=== PATIENT | female | born 1930 | race Caucasian/White ===

== ENCOUNTER 2018-08-15 18:35 | Inpatient (IN) | payer MEDICARE ==
[2018-08-15 20:15] LABS: Troponin I 1.252 ng/mL (< 0.028)
[2018-08-15 21:37] VITALS: BMI 21.8
[2018-08-15] MEDS ORDERED: Senokot S 8.6-50 MG TAB PO PRN (21:40)
[2018-08-15] MEDS ORDERED: Bisacodyl 5 MG TAB PO PRN (21:40)
[2018-08-15] MEDS ORDERED: Acetaminophen 325 MG TAB PO PRN (21:40)
[2018-08-15 23:01] LABS: Troponin I 1.409 ng/mL (< 0.028)
[2018-08-16 05:21] LABS: Anion Gap 10 mmol/L (10-20); BUN (Urea Nitrogen) 27 mg/dL (9.8-20.1); Calc. Creatinine Clearance 36 mL/min (70-130); Calcium 9.3 mg/dL (7.8-10.44); Carbon Dioxide 27 mmol/L (23-31); Chloride 102 mmol/L (98-107); Estimated GFR-MDRD 54; Glucose 87 mg/dL (83-110); Iron 14 ug/dL (50-170); Iron Binding Capacity, Total 341 mcg/dL (265-497); Potassium 4.3 mmol/L (3.5-5.1); Sodium 135 mmol/L (136-145)
[2018-08-16 05:27] LABS: #Eosinphils 0.2 thou/uL (0.0-0.7); #Lymphocytes 1.3 thou/uL (1.20-3.40); #Monocytes 0.9 thou/uL (0.11-0.59); #Neutrophils 5.6 thou/uL (1.40-6.50); %Basophils 0.5 % (0.0-1.0); %Monocytes 11.7 % (0.0-10.0); %Neutrophils 69.7 % (42.0-75.0); Hemoglobin 8.2 g/dL (12.0-16.0); Mean Corpuscular HGB CONC 29.9 g/dL (32.0-36.0); Mean Corpuscular Hemoglobin 21.3 pg (27.0-31.0); Mean Corpuscular Volume 71.3 fL (78.0-98.0); Mean Platelet Volume 10.4 fL (7.4-10.4); Platelet Count 314 thou/uL (130-400); RBC Distribution Width 19.6 % (11.5-14.5); Red Blood Cell (RBC) Count 3.86 mill/uL (4.20-5.40)
[2018-08-16 05:43] LABS: Critical Call Chem Troponin I RESULT DECREASING; Troponin I 1.331 ng/mL (< 0.028)
--- NOTE | 2018-08-16 05:52 | PDOC.EVN ---
Event Note - Event Note Event Note: pt's pcp is Dr mena per pt and ER. Resident called and informed.
--- NOTE | 2018-08-16 05:58 | PDOC.FPRHP ---
- History of Present Illness Chief Complaint: chest pain History of Present Illness: This is an 88 yo F who is a transfer from the [place] ER. She was initially admitted to [facility], who later discovered she is a patient of Dr. Anguiano's. The patient presented to the [place] ER with CC of chest pain and SOB. She complained of lower chest pain and SOB. Patient had O2 saturation that dropped to 88% during transit and offered O2 by EMS but patient refused. Patient states pain is localized and dull in nature. She was found to be in SVT. She was given cardizem 10mg IV, ASA, morphine, and lasix in the ED. Her labs showed elevated BNP concerning for CHF, new onset as well as possible NSTEMI. Heparin was not started due to hx of bleeding ulcer and patient's anemia. On exam, the patient reports that she is feeling less SOB. She states that yesterday she laid down to take a nap around noon when she began feeling SOB. She became increasingly SOB and called her daughter who decided she should go to the ER. She endorsed chest pain at the time that she states felt like her usual GERD pain. SHe states it was dull, started in the middle of her chest and went across her left chest. She states this pain is exacerbated by eating. She states that her symptoms were exacerbated by lying flat and exertion. She states she has been having symptoms for weeks. She denies fever/chills, NVD, cough, palpitations, abdominal pain. She denies hx of previous MIs. ED Course: cardizem, asa, morphine, lasix - Allergies/Adverse Reactions Allergies Allergy/AdvReac Type Severity Reaction Status Date / Time Penicillins Allergy Verified 09/04/15 02:55 Sulfa (Sulfonamide Allergy Verified 09/04/15 02:55 Antibiotics) - Home Medications Medication Instructions Recorded Confirmed Type No Known 08/15/18 08/15/18 History - History PMHx: HTN, depression, GERD, degenerative joint disease, SVT PSHx: cataract surgery, cholecystectomy, hernia repair FHx: non contributory Social: denies alcohol, tobacco or drug use; lives in assisted living apartments in [place], sees Dr. Anguiano for her PCP - Review of Systems General: denies: fever/chills, weight/appetite/sleep changes, night sweats, fatigue Eyes: denies: vision changes ENT: denies: nasal congestion, rhinorrhea Respiratory: reports: shortness of breath, exercise intolerance. denies: cough , congestion Cardiovascular: reports: chest pain, paroxysmal nocturnal dyspnea, orthopnea. denies: palpitation, edema Gastrointestinal: denies: nausea, vomiting, diarrhea, constipation, abdominal pain Genitourinary: denies: dysuria Skin: denies: rashes Neurological: denies: numbness, syncope, seizure Psychological: reports: depression. denies: anxiety - Vital signs BP: 145/70, T: 97.5, HR: 73, RR: 18, O2 sats: 100% on 2L NC - Physical Exam Constitutional: NAD, awake, alert and oriented, well developed HEENT: normocephalic and atraumatic, PERRLA, EOMI, grossly normal vision, grossly normal hearing, MMM -HEENT: poor dentition Neck: supple, FROM Chest: no-tender to palpation, no lesions Heart: RRR, normal S1/S2, no murmurs/rubs/gallops, pulses present Lungs: CTAB, no respiratory distress, good air movement, no rales/rhonchi, no wheezing, no retractions Abdomen: soft, non-tender, bowel sounds present Musculoskeletal: normal structure, normal tone Neurological: no focal deficit Skin: no rash/lesions, good turgor, capillary refill <2 seconds Psychiatric: normal mood and affect FMR H&P: Results - Labs Result Diagrams: 08/16/18 04:19 08/16/18 04:19 Lab results: WBC 8.0 thou/uL (4.8-10.8) 08/16/18 04:19 Hgb 8.2 g/dL (12.0-16.0) L 08/16/18 04:19 Hct 27.5 % (36.0-47.0) L 08/16/18 04:19 MCV 71.3 fL (78.0-98.0) L 08/16/18 04:19 Plt Count 314 thou/uL (130-400) 08/16/18 04:19 Neutrophils % 69.7 % (42.0-75.0) 08/16/18 04:19 Sodium 135 mmol/L (136-145) L 08/16/18 04:19 Potassium 4.3 mmol/L (3.5-5.1) 08/16/18 04:19 Chloride 102 mmol/L (98-107) 08/16/18 04:19 Carbon Dioxide 27 mmol/L (23-31) 08/16/18 04:19 BUN 27 mg/dL (9.8-20.1) H 08/16/18 04:19 Creatinine 0.97 mg/dL (0.6-1.1) 08/16/18 04:19 Glucose 87 mg/dL (83-110) 08/16/18 04:19 Calcium 9.3 mg/dL (7.8-10.44) 08/16/18 04:19 - Radiology Interpretation Chest x-ray Status: report reviewed by me (pulm vascular congestion w/ enlarged cardiac silouette; bibasilar pleural/parenchymal opacity) FMR H&P: A/P - Problem List (1) NSTEMI (non-ST elevated myocardial infarction) Current Visit: Yes Status: Acute Code(s): I21.4 - NON-ST ELEVATION (NSTEMI) MYOCARDIAL INFARCTION (2) CHF (congestive heart failure) Current Visit: Yes Status: Acute Code(s): I50.9 - HEART FAILURE, UNSPECIFIED (3) HTN (hypertension) Current Visit: Yes Status: Acute Code(s): I10 - ESSENTIAL (PRIMARY) HYPERTENSION (4) GERD (gastroesophageal reflux disease) Current Visit: Yes Status: Acute Code(s): K21.9 - GASTRO-ESOPHAGEAL REFLUX DISEASE WITHOUT ESOPHAGITIS (5) Anemia Current Visit: Yes Status: Acute Code(s): D64.9 - ANEMIA, UNSPECIFIED (6) Depression Current Visit: Yes Status: Acute Code(s): F32.9 - MAJOR DEPRESSIVE DISORDER , SINGLE EPISODE, UNSPECIFIED - Plan NSTEMI - Trops have now downtrended 1.252 -> 1.409 -> 1.331 - Cards consulted, appreciate recs - Patient has not been anticoagulated due to hx of bleeding GI ulcers - Will discuss with cardiology and likely start patient on lovenox CHF, new onset - BNP 2011, elevated from baseline, no hx of CHF - Echo pending - Cards consulted Elevated D-dimer - Ddimer 1. - Will order CTA chest to r/o PE Episode of SVT , resolved - given cardizem, patient current NSR - Hx of SVT in 2016, seen by Mary who offered ablation - patient wished to have no invasion procedures at that time. - Cards consulted, appreciate recommendations HTN - aware, home meds GERD - aware, continue home meds Depression - aware, continue home meds Dispo: tele, inpatient; >2midnights CODE: DNAR DVT ppx: lovenox Gi ppx: protonix Case discussed with Dr. Alvarez FMR H&P: Upper Level - Pertinent history 88 yo WF PMH HTN and SVT. Presents with 2 wk history of intermittent SOB and upper abdominal pain that worsened at approximately 1200 on 08/15/18. States she waited for her daughter to get off work at 1500 before coming to [place] ER for evaluation. Was found to have an NSTEMI and presumed new onset CHF was sent to [facility] for evaluation and admission. She received ASA 324 mg, morphine 4 mg, and Lasix 20 mg. Has history of GI bleed. [place] ER: patient went into SVT and required a diltiazem gtt. She was admitted to [facility] but was then discovered at 0600 today to be a patient of Dr. Anguiano and transferred to the FMR service. At this time her SVT had resolved and she was no longer requiring diltiazem. - Pertinent findings Vitals: BP elevated at 149/91, pulse 73 (max documented 160), otherwise WNL GEN: NAD, A&Ox4 CV: RRR, no murmur Pulm: CTA-B, normal effort Labs: BNP 2011, Trop 1.189-> 1.252 -> 1.409-> 1.331 H&H 8.2/27.5 (baseline) CXR: No acute findings EKG #1: NSR, no specific ST changes EKG #2: SVT rate 160 - Plan Date/Time: 08/16/18 0558 I, Sean Abad MD, have evaluated this patient and agree with findings/plan as outlined by network internship resident. Pertinent changes/additions are listed here. 1. NSTEMI: trop has trended down. Will discuss anticoagulation with cardiology and await further recommendations. 2. Presumed New onset CHF: cards recs. Continue Lasix. 3. Elevated D-dimer: CTA-Chest to r/o PE. 4. SVT: resolved. Monitor 5. HTN: home meds. Diet: NPO pending possible cath. PPx: SCD, consider therapeutic lovenox CODE: DNR-DNI. Discussed with patient who was decisional. Dispo: inpatient, tele, >[address] Alvarez. Addendum - Attending - Attending Attestation Date/Time: 08/16/18 1159 I personally evaluated the patient and discussed the management with Dr. Peres I agree with the History, Examination, Assessment and Plan documented above with any addition or exceptions noted below. 88 yo female living independently [place] with progressive dyspnea for the last two weeks with worsening episode at rest yesterday. Patient endorses epigastric lower chest pain that radiated to left breast no associated N/V or diaphoresis pain states this pain previously relieved by drinking liquids yesterday was not.Patient called Daughter and transported to [place] ER then transferred ER [facility] and found with NSTEMI and SVT given 10 mg IV cardizem with rate down to 80s prior to my exam. Upon having patient sit up for exam she had asymptomatic SVT for which IV cardizem was initiated. Patient with past medical history CHF states on no medication over one month, history significant dysphagia and history esophagitis, previous bleeding ulcer. Patient poor historian and defers to obtaining information from her Daughters. Patient with prior episode SVT refused consideration of ablation in the past. She confirms she is DNR request comfort care declines invasive care at this time. Note positive D-Dimer will proceed with CTA and obtain echocardiogram, IV diltiazem for rate control patient states can only take po liquids and chokes on pills. Expectant management will need consider long term care pharmacist placement options as she is debilitated.Consider anticoagulation after CTA completed note anemia and prior GI bleed.
[2018-08-16] MEDS ORDERED: Furosemide 40 MG TAB PO SCH (07:30)
[2018-08-16 07:37] LABS: Hemoglobin A1c 5.4 % (4.0-6.0)
[2018-08-16] MEDS ORDERED: Famotidine/PF 20 mg/2ml Vial SLOW IVP SCH (09:00)
[2018-08-16] MEDS: Bupropion 150 MG SR TAB PO SCH (09:00)
--- NOTE | 2018-08-16 10:11 | CT ---
CT PULMONARY ANGIOGRAM WITH IV CONTRAST AND 3-D POSTPROCESSING: HISTORY: Chest pain and shortness of breath FINDINGS: There is good contrast opacification of the pulmonary arterial vasculature without filling defects to suggest pulmonary embolism. There are bilateral pleural effusions, right larger than left with adjacent mild infiltrates/atelectatic changes. No pneumothoraces are seen. Pericardial effusion is pr esent. There are degenerative changes in the spine. There are postoperative changes of cholecystectomy. Calcified granulomas are seen in the liver and spleen. Adrenal nodularity stable sin ce 06/12/2012. The esophagus is dilated. IMPRESSION: No CT evidence of pulmonary embolism.
[2018-08-16] MEDS: Aspirin Chewable 81 MG TAB PO SCH (10:18)
[2018-08-16] MEDS: Enoxaparin Sodium 60 MG/0.6 ML SYRINGE SC SCH ×2 (10:18→21:01)
[2018-08-16] MEDS: Metoprolol Tartrate 25 MG TAB PO SCH ×2 (10:19→21:01)
[2018-08-16] MEDS: FLUoxetine HCl 20 MG CAP PO SCH (10:19)
[2018-08-16] MEDS: Lisinopril/Hydrochlorothiazide 20 mg/12.5 mg Tablet PO SCH (10:19)
[2018-08-16] MEDS ORDERED: ISOVUE-370 76%-LOCM 1 ML ONE (10:57)
--- NOTE | 2018-08-16 18:36 | CON ---
DATE OF CONSULTATION: 08/16/2018 REASON FOR CONSULTATION: SVT. HISTORY OF PRESENT ILLNESS: Ms. Gallegos is a very pleasant 88-year-old white female, whom I saw about 3 years ago in the hospital. At that time, she was admitted for generalized weakness and she went into SVT. She refused any invasive interventions and was started on a beta-brook and eventually was discharged home. Family tells me that she has been on no medications over the past 2-1/2 to 3 years as she did not want to go to any doctors and the medications would not be refilled if she did not go see them. She called EMS yesterday as she was short of breath and was starting to get volume overload, she was found to be in SVT when EMS arrived, and she was given IV diltiazem and brought into the hospital. Eventually, she converted back in sinus rhythm and was admitted for further evaluation. She had troponins drawn and they were elevated suggestive of a non-ST elevation NH. She also went back into SVT briefly this morning for about 10 minutes and then converted back into normal rhythm on her own. Currently, she denies any chest pain, tightness, or pressure. Her biggest complaint is her not being able to swallow. She needs an EGD and dilatation as she has had them in the past with Dr. Alberts. PAST MEDICAL HISTORY: 1. Hypertension. 2. Depression. 3. GERD. 4. DJD. 5. History of SVT as above. PAST SURGICAL HISTORY: 1. Cataract surgery. 2. Cholecystectomy. 3. Hernia repair. FAMILY HISTORY: Noncontributory. SOCIAL HISTORY: No alcohol, tobacco, or drugs. REVIEW OF SYSTEMS: A 12-point review of systems was done and was all negative unless stated in the history of present illness. OUTPATIENT MEDICATIONS: None. ALLERGIES: PENICILLIN AND SULFA DRUGS. PHYSICAL EXAMINATION: VITAL SIGNS: Blood pressure 148/81, temperature 98.6, pulse 71, respiratory rate 16, and satting 98% on 3 L. GENERAL: Awake, alert, and oriented x3. No distress. HEENT: Normocephalic and atraumatic. NECK: Supple. LUNGS: Clear. CARDIOVASCULAR: S1 and S2. No S3 or S4. No murmurs. There is a grade 3/6 systolic murmur at the right upper sternal border. ABDOMEN: Soft. Positive bowel sounds. EXTREMITIES: No edema. SKIN: Warm and dry. LABORATORY DATA: Laboratory work was reviewed. CBC: White count of 9.3; hemoglobin 7.7, up to 8.2; platelet count of 314. Coags were reviewed. Chemistries were reviewed. Her iron was 14, TIBC was 341, percent saturation was 4. Troponin was 1.18, up to 1.25, then 1.4 and then down to 1.3. BNP was 2012 with a procalcitonin of 0.08 and TSH of 3.2. Digoxin level was undetectable. CT of the chest showed no evidence of pulmonary embolism. Chest x-ray was reviewed and showed pulmonary vascular congestion. ASSESSMENT: 1. Acute on chronic diastolic heart failure. 2. Supraventricular tachycardia, paroxysmal. 3. Etj-YJ-terhmuacl myocardial infarction: Unclear whether this is a type 2 myocardial infarction versus type 1 myocardial infarction. More than likely, a type 2 myocardial infarction secondary to rapid supraventricular tachycardia. 4. Dysphagia. PLAN: 1. Continue aspirin and full anticoagulation for the time being. 2. Agree with metoprolol 25 mg twice a day, may increase as blood pressure allows. We will cut back on her hydrochlorothiazide and just give her lisinopril. 3. She is significantly improved with her breathing with IV Lasix. We would keep her one more dose of IV tomorrow and then switch her to p.o. daily dose at 40. 4. She is not wanting any invasive interventions. Not interested in heart catheterizations or anything of that sort. Not interested in ablations. We will continue to treat conservatively for now. 5. She will need to complete 48 hours of full anticoagulation. Thank you for letting us to participate in the care of your patient. We will follow. Job ID: [id number]
--- NOTE | 2018-08-17 06:30 | PDOC.FM ---
- Subjective Subjective: Pt says feels weak and "not well." Denies chest pain. Endorses SOB. - Objective Vital Signs & Weight: Vital Signs (12 hours) Temp Pulse Resp BP Pulse Ox 08/17/18 02:43 98.1 F 69 18 138/65 96 08/16/18 19:15 98.2 F 67 18 130/70 92 L Weight Weight 57.652 kg I&O: 08/15/18 08/16/18 08/17/18 06:59 06:59 06:59 Intake Total 1000 Output Total 650 Balance 350 Result Diagrams: 08/16/18 04:19 08/16/18 04:19 Phys Exam - Physical Examination HEENT: PERRLA, sclera anicteric Respiratory: no wheezing, clear to auscultation bilateral Cardiovascular: no significant murmur tachycardic Gastrointestinal: soft, no distention Neurological: non-focal, moves all 4 limbs Deviation from normal: anxious appearing Dx/Plan (1) NSTEMI (non-ST elevated myocardial infarction) Code(s): I21.4 - NON-ST ELEVATION (NSTEMI) MYOCARDIAL INFARCTION Status: Acute (2) CHF (congestive heart failure) Code(s): I50.9 - HEART FAILURE, UNSPECIFIED Status: Acute (3) HTN (hypertension) Code(s): I10 - ESSENTIAL (PRIMARY) HYPERTENSION Status: Acute (4) GERD (gastroesophageal reflux disease) Code(s): K21.9 - GASTRO-ESOPHAGEAL REFLUX DISEASE WITHOUT ESOPHAGITIS Status: Acute - Plan Plan: NSTEMI - Trops have now downtrended 1.252 -> 1.409 -> 1.331 - Pt refused invasive interventions, continue with conservative mgmt - th lovenox, statin, ASA. Cards rx 48 hours of this - Hx of bleeding GI ulcers, will monitor SVT -HR 150s per report, pt sxatic -Dilt IV push x1, start dilt gtt - hx of SVT in 2015, refused ablation. s/p episode yesterday, resolved with cardizem x1 -rate control CHF, new onset - BNP 2011, elevated from baseline, no hx of CHF - Echo pending - ASA, lisinopril, BB - continue 40IV lasix x1 this AM then transition to PO today per cards - will start statin Elevated D-dimer - Ddimer 1.19 - CTA neg for PE HTN - aware, home meds GERD - aware, continue home meds Depression - aware, continue home meds Dispo: tele, inpatient; >2midnights CODE: DNAR DVT ppx: lovenox Gi ppx: protonix Case discussed with Dr. Alvarez Addendum - Attending - Attending Attestation Date/Time: 08/17/18 2418 I personally evaluated the patient and discussed the management with Dr. Almanza I agree with the History, Examination, Assessment and Plan documented above with any addition or exceptions noted below. patient s/p MT appreciate Smalltalk Developer recommendation and note that echocardiogram reveal wall motion defect c/w more extensive MT. SVT responsive to diltiazem will rec drip and convert to po if rate controlled next 24 hours Appreciate recommendations form Cardiology.
[2018-08-17] MEDS: Enoxaparin Sodium 60 MG/0.6 ML SYRINGE SC SCH ×2 (08:44→21:45)
[2018-08-17] MEDS: Lisinopril/Hydrochlorothiazide 20 mg/12.5 mg Tablet PO SCH (08:44)
[2018-08-17] MEDS: Bupropion 150 MG SR TAB PO SCH (08:44)
[2018-08-17] MEDS: FLUoxetine HCl 20 MG CAP PO SCH (08:45)
[2018-08-17] MEDS: Aspirin Chewable 81 MG TAB PO SCH (08:45)
[2018-08-17] MEDS: Metoprolol Tartrate 25 MG TAB PO SCH (08:45)
[2018-08-17] MEDS: Famotidine/PF 20 mg/2ml Vial SLOW IVP SCH (08:45)
[2018-08-17] MEDS ORDERED: Furosemide 40 MG/4 ML VIAL SLOW IVP SCH (09:00)
--- NOTE | 2018-08-17 09:57 | EKG ---
Test Reason : Blood Pressure : / mmHG Vent. Rate : 075 BPM Atrial Rate : 075 BPM P-R Int : 174 ms QRS Dur : 130 ms QT Int : 428 ms P-R-T Axes : 033 -14 041 degrees QTc Int : 477 ms Normal sinus rhythm Right bundle branch block Nonspecific ST-T changes Abnormal ECG When compared with ECG of 15-AUG-2018 18:41, (Unconfirmed) Previous ECG has undetermined rhythm, needs review QRS axis Shifted right Confirmed by DR. Erika PEREYRA ([id number]) on 08/17/2018 9:57:00 AM Referred By: SHEMAR Confirmed By:DR. Erika PEREYRA
[2018-08-17] MEDS ORDERED: Diltiazem 125 MG in Sodium Chloride 0.9% 100 ML IVPB SCH (10:00)
--- NOTE | 2018-08-17 10:05 | EKG ---
Test Reason : Blood Pressure : / mmHG Vent. Rate : 083 BPM Atrial Rate : 083 BPM P-R Int : 180 ms QRS Dur : 130 ms QT Int : 416 ms P-R-T Axes : 012 -46 025 degrees QTc Int : 488 ms Sinus rhythm with Premature atrial complexes Right bundle branch block Left anterior fascicular block Bifascicular block Abnormal ECG Confirmed by DR. Erika PEREYRA ([id number]) on 08/17/2018 10:05:30 AM Referred By: ERNESTO Confirmed By:DR. Erika PEREYRA
--- NOTE | 2018-08-17 10:38 | EKG ---
Test Reason : Blood Pressure : / mmHG Vent. Rate : 157 BPM Atrial Rate : 159 BPM P-R Int : 000 ms QRS Dur : 130 ms QT Int : 304 ms P-R-T Axes : 000 -59 040 degrees QTc Int : 491 ms Undetermined rhythm Left axis deviation Right bundle branch block Abnormal ECG Confirmed by CHIO VALDERRAMA ([id number]), medical transcription editor RANDI TORREZ ([id number]) on 08/17/2018 10:38:12 AM Referred By: Confirmed By:CHIO VALDERRAMA
[2018-08-17] MEDS ORDERED: Furosemide 40 MG TAB PO SCH (14:00)
--- NOTE | 2018-08-17 14:58 | PDOC.EVN ---
Event Note - Event Note Event Note: Pt HR improved on IV Diltiazem. Will increase Metoprolol and D/C IV Diltiazem this evening.
--- NOTE | 2018-08-17 16:13 | PDOC.CTH ---
Cardiology Progress Note - Subjective She had another run of sustained SVT HR in the 180's. Started on diltiazem drip. - Objective Vital Signs Temp Pulse Resp BP Pulse Ox 08/17/18 15:45 97.8 F 65 18 138/77 08/17/18 12:30 97.8 F 64 20 139/70 96 08/17/18 08:45 98.3 F 98 20 157/87 H 96 08/17/18 08:44 69 08/17/18 07:35 95 Weight 127 lb 1.6 oz 08/16/18 08/17/18 08/18/18 06:59 06:59 06:59 Intake Total 1000 Output Total 650 Balance 350 - Physical Examination General/Neuro: alert & oriented x3, NAD Neck: no JVD present Lungs: other: (Reduced bretah sounds more on right. ) Heart: RRR Abdomen: NT/ND Extremities: + edema B (1+) - Telemetry Telemetry Rhythm: AVT --> NSR - Labs Result Diagrams: 08/16/18 04:19 08/16/18 04:19 Troponin/CKMB Troponin I 1.331 ng/mL (< 0.028) H* 08/16/18 04:19 - Assessment/Plan 1. SVT 2. NSTEMI 3. New onset systolic heart failure EF at 30-35% 4. Dysphagia 5. Acute systolic heart failure. PLAN: - IV lasix - Would hold diltiazem for now and up titrate BB. - Continue full anticoagulation. - Reduced EF and inferior hypokinesis suggestive of area of ischemia. - Still not interested in anything invasive. - She wants to be kept comfortable and does not want anything aggressive. - I offered palliative care and she tells she would have to talk to her daughters about this. - If she continues to have SVT will start amiodarone drip.
[2018-08-17] MEDS ORDERED: buPROPion 75 MG TAB PO SCH (21:00)
[2018-08-17] MEDS: Metoprolol Tartrate 50 MG TAB PO SCH (21:44)
[2018-08-17] MEDS: Atorvastatin Calcium 40 MG TAB PO SCH (21:44)
[2018-08-17] MEDS: buPROPion 75 MG TAB PO SCH (21:44)
--- NOTE | 2018-08-18 05:35 | PDOC.FM ---
- Subjective Subjective: Pt reports feeling better. Denies chest pain, problems breathing. - Objective MAR Reviewed: Yes Vital Signs & Weight: Vital Signs (12 hours) Temp Pulse Resp BP Pulse Ox 08/18/18 03:34 98.5 F 63 17 151/72 H 98 08/17/18 19:15 98 F 73 18 132/87 100 Weight Weight 57.652 kg I&O: 08/16/18 08/17/18 08/18/18 06:59 06:59 06:59 Intake Total 1000 680 Output Total 650 1240 Balance 350 -560 Result Diagrams: 08/18/18 06:31 08/18/18 06:31 Phys Exam - Physical Examination Constitutional: NAD HEENT: PERRLA, moist MMs, sclera anicteric Neck: full ROM Respiratory: no wheezing, clear to auscultation bilateral Cardiovascular: no significant murmur bradycardic Gastrointestinal: soft, non-tender Musculoskeletal: no edema Neurological: non-focal, moves all 4 limbs Psychiatric: normal affect, A&O x 3 Dx/Plan (1) KARLI (acute kidney injury) Code(s): N17.9 - ACUTE KIDNEY FAILURE, UNSPECIFIED Status: Acute (2) NSTEMI (non-ST elevated myocardial infarction) Code(s): I21.4 - NON-ST ELEVATION (NSTEMI) MYOCARDIAL INFARCTION Status: Acute (3) CHF (congestive heart failure) Code(s): I50.9 - HEART FAILURE, UNSPECIFIED Status: Acute (4) HTN (hypertension) Code(s): I10 - ESSENTIAL (PRIMARY) HYPERTENSION Status: Acute (5) GERD (gastroesophageal reflux disease) Code(s): K21.9 - GASTRO-ESOPHAGEAL REFLUX DISEASE WITHOUT ESOPHAGITIS Status: Acute (6) Sustained SVT Code(s): I47.1 - SUPRAVENTRICULAR TACHYCARDIA Status: Acute (7) Anemia Code(s): D64.9 - ANEMIA, UNSPECIFIED Status: Acute (8) Hypokalemia Code(s): E87.6 - HYPOKALEMIA Status: Acute - Plan Plan: NSTEMI - Trops have now downtrended 1.252 -> 1.409 -> 1.331 - Pt refused invasive interventions, continue with full conservative mgmt - th lovenox, statin, ASA. Cards rx 48 hours of this - Hx of bleeding GI ulcers, will monitor - Cards on board, recs appreciated Sustained SVT -Episode of nonsustained SVT on 08/16/18, s/p dilt IVP x1 -Episode of sustained SVT on 08/17/18, s/p dilt IVP x1, then dilt gtt started then d/cd per cards -Metoprolol uptitrated-50mg BID, rate controlled, continue this -Still refusing ablation/any invasive procedure -Amio if SVT returns New onset CHFrEF (30-35%) - BNP 2011, elevated from baseline, no hx of CHF - Echo showing grade 1/3 diastolic dysfx, mitral regurg, pericardial effusion w/ o tamponade - Continue ASA, lisinopril, BB, statin, IV lasix Hypokalemia -from diuresis, will replace Dysphagia -Patient with hx of esophageal stricture -Pending ballooon dilation, but may need to delay for 3mo. due to NSTEMI -Will discuss with patient/daughters Pericardial effusion -Found on TTE this admission -No tamponade -BPs maintaining -No further intervention at this time Elevated D-dimer - Ddimer . - CTA neg for PE HTN - aware, home meds GERD - aware, continue home meds Depression - aware, continue home meds CODE: DNAR DVT ppx: lovenox Gi ppx: protonix Case discussed with Dr. Alvarez Dispo: SVT: Rate controlled with metoprolol, continue. KARLI: 500cc bolus, continue to monitor for fluid overload. stopped IV lasix, will give PRN. Consider transition to PO tmrw. Dysphagia: unable to tolerate puree diet this AM , have speech come reevaluate. NSTEMI, CHF- medical mgmt, declines further invasive interventions. Replace K+. Addendum - Attending - Attending Attestation Date/Time: 08/18/18 8044 I personally evaluated the patient and discussed the management with Dr. Almanza I agree with the History, Examination, Assessment and Plan documented above with any addition or exceptions noted below.
[2018-08-18] MEDS ORDERED: Furosemide 40 MG/4 ML VIAL SLOW IVP SCH (06:00)
[2018-08-18 06:55] LABS: #Eosinphils 0.2 thou/uL (0.0-0.7); #Lymphocytes 1.1 thou/uL (1.20-3.40); #Monocytes 0.6 thou/uL (0.11-0.59); #Neutrophils 6.9 thou/uL (1.40-6.50); %Basophils 0.5 % (0.0-1.0); %Eosinophils 1.9 % (0.0-10.0); %Lymphocytes 12.8 % (21.0-51.0); %Neutrophils 77.9 % (42.0-75.0); Hemoglobin 8.2 g/dL (12.0-16.0); Mean Corpuscular HGB CONC 29.6 g/dL (32.0-36.0); Mean Corpuscular Hemoglobin 21.3 pg (27.0-31.0); Mean Platelet Volume 9.7 fL (7.4-10.4); Platelet Count 366 thou/uL (130-400); RBC Distribution Width 19.8 % (11.5-14.5); Red Blood Cell (RBC) Count 3.86 mill/uL (4.20-5.40); White Blood Cell (WBC) Count 8.9 thou/uL (4.8-10.8)
[2018-08-18 07:13] LABS: Anion Gap 15 mmol/L (10-20); BUN (Urea Nitrogen) 32 mg/dL (9.8-20.1); Calc. Creatinine Clearance 22 mL/min (70-130); Calcium 8.9 mg/dL (7.8-10.44); Carbon Dioxide 25 mmol/L (23-31); Chloride 100 mmol/L (98-107); Estimated GFR-MDRD 34; Glucose 79 mg/dL (83-110); Potassium 3.1 mmol/L (3.5-5.1); Sodium 137 mmol/L (136-145)
[2018-08-18] MEDS ORDERED: Potassium Chloride 40 MEQ in Premix Bag 1 BAG IVPB SCH (09:15)
[2018-08-18] MEDS: Lisinopril/Hydrochlorothiazide 20 mg/12.5 mg Tablet PO SCH (10:05)
[2018-08-18] MEDS: Aspirin Chewable 81 MG TAB PO SCH (10:05)
[2018-08-18] MEDS: Famotidine/PF 20 mg/2ml Vial SLOW IVP SCH (10:05)
[2018-08-18] MEDS: Enoxaparin Sodium 60 MG/0.6 ML SYRINGE SC SCH (10:05)
[2018-08-18] MEDS: buPROPion 75 MG TAB PO SCH ×2 (10:05→20:58)
[2018-08-18] MEDS: Metoprolol Tartrate 50 MG TAB PO SCH ×2 (10:06→20:58)
[2018-08-18] MEDS: FLUoxetine HCl 20 MG CAP PO SCH (10:06)
[2018-08-18] MEDS ORDERED: Lactated Ringer's 500 ML IV SCH ×2 (11:00→12:00)
[2018-08-18] MEDS: Potassium Chloride 20 MEQ in Premix Bag 1 BAG IVPB SCH ×2 (11:36→16:58)
--- NOTE | 2018-08-18 15:49 | PDOC.CTH ---
Cardiology Progress Note - Subjective No new issues. - Objective Vital Signs Temp Pulse Resp BP Pulse Ox 08/18/18 12:35 98.4 F 74 18 149/74 H 94 L 08/18/18 10:05 60 08/18/18 07:40 95 08/18/18 07:26 97.8 F 60 20 150/71 H 95 Weight 119 lb 3.2 oz 08/17/18 08/18/18 08/19/18 06:59 06:59 06:59 Intake Total 1000 930 Output Total 650 1390 Balance 350 -460 - Physical Examination General/Neuro: alert & oriented x3, NAD Neck: no JVD present Lungs: unlabored respirations Heart: RRR Abdomen: NT/ND Extremities: other: (no edema) - Telemetry Telemetry Rhythm: NSR - Labs Result Diagrams: 08/18/18 06:31 08/18/18 06:31 Troponin/CKMB Troponin I 1.331 ng/mL (< 0.028) H* 08/16/18 04:19 - Assessment/Plan 1. SVT 2. NSTEMI 3. New onset systolic heart failure EF at 30-35% 4. Dysphagia 5. Acute systolic heart failure. PLAN: - She spoke with her kids and they are all in agreement for her to move to palliative care as she does not wish to do anything other than what has to be done to keep her comfortable. - Continue BB. - Replace K PO with liquid solution - Will consult palliative care. - Will sing off. Please call with any questions.
[2018-08-18] MEDS ORDERED: Dextrose 5%-Lactated Ringers 1,000 ML IV SCH (18:45)
--- NOTE | 2018-08-18 20:20 | PDOC.EVN ---
Event Note - Event Note Event Note: Talked with speech therapy who notified patient was unable to tolerate liquid diet with aspiration. Family agreed that they desire for patient to be kept comfortable. Meeting with palliative care tmrw, hoping can breech topic of hospice. Will start patient on low dose D5LR since not tolerating PO
[2018-08-18] MEDS ORDERED: Labetalol HCl 100 MG/20 ML VIAL SLOW IVP PRN (20:21)
[2018-08-18] MEDS: Atorvastatin Calcium 40 MG TAB PO SCH (20:58)
[2018-08-19 07:03] LABS: #Eosinphils 0.1 thou/uL (0.0-0.7); #Lymphocytes 0.8 thou/uL (1.20-3.40); #Monocytes 0.5 thou/uL (0.11-0.59); #Neutrophils 4.9 thou/uL (1.40-6.50); %Basophils 0.2 % (0.0-1.0); %Eosinophils 1.8 % (0.0-10.0); %Lymphocytes 12.1 % (21.0-51.0); %Monocytes 7.4 % (0.0-10.0); %Neutrophils 78.4 % (42.0-75.0); Hemoglobin 7.9 g/dL (12.0-16.0); Mean Corpuscular HGB CONC 29.6 g/dL (32.0-36.0); Mean Corpuscular Hemoglobin 21.4 pg (27.0-31.0); Mean Corpuscular Volume 72.3 fL (78.0-98.0); Mean Platelet Volume 9.8 fL (7.4-10.4); Platelet Count 342 thou/uL (130-400); RBC Distribution Width 19.7 % (11.5-14.5); Red Blood Cell (RBC) Count 3.68 mill/uL (4.20-5.40); White Blood Cell (WBC) Count 6.3 thou/uL (4.8-10.8)
[2018-08-19 07:18] LABS: Anion Gap 14 mmol/L (10-20); BUN (Urea Nitrogen) 33 mg/dL (9.8-20.1); Calc. Creatinine Clearance 22 mL/min (70-130); Calcium 9.2 mg/dL (7.8-10.44); Carbon Dioxide 25 mmol/L (23-31); Chloride 103 mmol/L (98-107); Estimated GFR-MDRD 35; Glucose 76 mg/dL (83-110); Potassium 3.2 mmol/L (3.5-5.1); Sodium 139 mmol/L (136-145)
--- NOTE | 2018-08-19 08:52 | PDOC.FM ---
- Subjective Subjective: pt reports feeling well this AM. No new concerns or complaints. no cp, no sob, no cough, no palpitations - Objective MAR Reviewed: Yes Vital Signs & Weight: Vital Signs (12 hours) Temp Pulse Resp BP Pulse Ox 08/19/18 08:19 97.8 F 61 16 139/65 97 08/19/18 04:18 98.5 F 53 L 21 H 144/67 H 08/18/18 23:23 98.4 F 54 L 15 142/69 H Weight Weight 52.118 kg I&O: 08/18/18 08/19/18 08/20/18 06:59 06:59 06:59 Intake Total 930 1120 Output Total 1390 920 Balance -460 200 Result Diagrams: 08/19/18 06:21 08/19/18 06:21 Phys Exam - Physical Examination Constitutional: NAD HEENT: moist MMs, sclera anicteric Neck: no JVD, supple Respiratory: no wheezing, clear to auscultation bilateral Cardiovascular: RRR, no significant murmur Gastrointestinal: soft, non-tender Musculoskeletal: no edema, pulses present Neurological: non-focal, moves all 4 limbs Psychiatric: normal affect Skin: no rash, normal turgor Dx/Plan (1) KARLI (acute kidney injury) Code(s): N17.9 - ACUTE KIDNEY FAILURE, UNSPECIFIED Status: Acute (2) GERD (gastroesophageal reflux disease) Code(s): K21.9 - GASTRO-ESOPHAGEAL REFLUX DISEASE WITHOUT ESOPHAGITIS Status: Acute (3) HTN (hypertension) Code(s): I10 - ESSENTIAL (PRIMARY) HYPERTENSION Status: Acute (4) Hypokalemia Code(s): E87.6 - HYPOKALEMIA Status: Acute (5) NSTEMI (non-ST elevated myocardial infarction) Code(s): I21.4 - NON-ST ELEVATION (NSTEMI) MYOCARDIAL INFARCTION Status: Acute (6) Sustained SVT Code(s): I47.1 - SUPRAVENTRICULAR TACHYCARDIA Status: Acute - Plan Plan: NSTEMI A- Trops have now downtrended 1.252 -> 1.409 -> 1.331. Pt refused invasive interventions, continue with full conservative mgmt. th lovenox, statin, ASA. Cards rx 48 hours of this. Cards no signed off, recs appreciated P- resolved Sustained SVT A- Episode of nonsustained SVT on 08/16/18, s/p dilt IVP x1. Episode of sustained SVT on 08/17/18, s/p dilt IVP x1, then dilt gtt started then d/cd per cards P- continue metoprolol -Still refusing ablation/any invasive procedure -Amio if SVT returns New onset CHFrEF (30-35%) A- BNP 2011, elevated from baseline, no hx of CHF. Echo showing grade 1/3 diastolic dysfx, mitral regurg, pericardial effusion w/o tamponade P- Continue ASA, lisinopril, BB, statin, IV lasix Hypokalemia -from diuresis, will replace Dysphagia A-Patient with hx of esophageal stricture. Pending ballooon dilation, but may need to delay for 3mo. due to NSTEMI p- Palliative meeting today, consider comfort feeds -Will discuss with patient/daughters Pericardial effusion A- Found on TTE this admission, No tamponade, BPs maintaining P- No further intervention at this time Elevated D-dimer - Ddimer 1.19 - CTA neg for PE HTN - aware, home meds GERD - aware, continue home meds Depression - aware, continue home meds CODE: DNAR
[2018-08-19] MEDS: Enoxaparin Sodium 40 MG/0.4 ML SYRINGE SC SCH (09:22)
[2018-08-19] MEDS: Aspirin Chewable 81 MG TAB PO SCH (09:22)
[2018-08-19] MEDS: Famotidine/PF 20 mg/2ml Vial SLOW IVP SCH (09:23)
[2018-08-19] MEDS: Metoprolol Tartrate 50 MG TAB PO SCH ×2 (09:23→19:40)
[2018-08-19] MEDS: FLUoxetine HCl 20 MG CAP PO SCH (09:23)
[2018-08-19] MEDS: buPROPion 75 MG TAB PO SCH ×2 (09:23→19:41)
[2018-08-19] MEDS: Lisinopril/Hydrochlorothiazide 20 mg/12.5 mg Tablet PO SCH (09:23)
[2018-08-19] MEDS: Dextrose 5%-Lactated Ringers 1,000 ML IV SCH ×2 (09:43→19:45)
[2018-08-19] MEDS ORDERED: Potassium Chloride 40 MEQ in Sodium Chloride 0.9% 250 ML 250 ML IVPB SCH (10:00)
--- NOTE | 2018-08-19 14:48 | PRG ---
DATE OF SERVICE: 08/19/2018 Ms. Gallegos was admitted with several issues including an NSTEMI secondary to type 2 RI from SVT. She was also known on echo to have a reduced ejection fraction of approximately 30-35%. Several recommendations for her care been made by our team, but she is refusing all but simple medical interventions. We will therefore have palliative care discuss with her and her family what long-term goals are. Job ID: [id number]
[2018-08-19] MEDS: Atorvastatin Calcium 40 MG TAB PO SCH (19:41)
--- NOTE | 2018-08-20 07:36 | PDOC.FM ---
- Subjective Subjective: Pt resting comfortably, family not at bedside. Pt A and O x3, denies any new complaints or concerns - Objective Vital Signs & Weight: Vital Signs (12 hours) Temp Pulse Resp BP Pulse Ox 08/20/18 03:56 98.0 F 63 18 154/72 H 94 L 08/19/18 20:30 96 08/19/18 20:15 97.9 F 62 16 142/65 H 96 Weight Weight 52.118 kg I&O: 08/19/18 08/20/18 08/21/18 06:59 06:59 06:59 Intake Total 1120 1540 Output Total 920 Balance 200 1540 Result Diagrams: 08/19/18 06:21 08/19/18 06:21 Phys Exam - Physical Examination Constitutional: NAD HEENT: moist MMs, sclera anicteric Neck: no nodes, supple Respiratory: no wheezing, clear to auscultation bilateral Cardiovascular: RRR, no significant murmur Gastrointestinal: soft, non-tender Musculoskeletal: no edema, pulses present Neurological: normal sensation, moves all 4 limbs Psychiatric: normal affect, A&O x 3 Skin: no rash, normal turgor Dx/Plan (1) KARLI (acute kidney injury) Code(s): N17.9 - ACUTE KIDNEY FAILURE, UNSPECIFIED Status: Acute (2) GERD (gastroesophageal reflux disease) Code(s): K21.9 - GASTRO-ESOPHAGEAL REFLUX DISEASE WITHOUT ESOPHAGITIS Status: Acute (3) HTN (hypertension) Code(s): I10 - ESSENTIAL (PRIMARY) HYPERTENSION Status: Acute (4) Hypokalemia Code(s): E87.6 - HYPOKALEMIA Status: Acute (5) NSTEMI (non-ST elevated myocardial infarction) Code(s): I21.4 - NON-ST ELEVATION (NSTEMI) MYOCARDIAL INFARCTION Status: Acute (6) Sustained SVT Code(s): I47.1 - SUPRAVENTRICULAR TACHYCARDIA Status: Acute - Plan Plan: NSTEMI A- Trops have now downtrended 1.252 -> 1.409 -> 1.331. Pt refused invasive interventions, continue with full conservative mgmt. th lovenox, statin, ASA. Cards rx 48 hours of this. Cards no signed off, recs appreciated P- resolved Sustained SVT A- Episode of nonsustained SVT on 08/16/18, s/p dilt IVP x1. Episode of sustained SVT on 08/17/18, s/p dilt IVP x1, then dilt gtt started then d/cd per cards P- continue metoprolol -Still refusing ablation/any invasive procedure -Amio if SVT returns New onset CHFrEF (30-35%) A- BNP 2011, elevated from baseline, no hx of CHF. Echo showing grade 1/3 diastolic dysfx, mitral regurg, pericardial effusion w/o tamponade P- Continue ASA, lisinopril, BB, statin Hypokalemia -replaced Dysphagia A-Patient with hx of esophageal stricture had plans for balloon dilation. Pt now going home on home hospice. p- comfort feeds per palliative comfort measures Pericardial effusion A- Found on TTE this admission, No tamponade, BPs maintaining P- No further intervention at this time Elevated D-dimer - Ddimer 1.19 - CTA neg for PE HTN - aware, home meds GERD - aware, continue home meds Depression - aware, continue home meds CODE: DNAR
[2018-08-20] MEDS: Aspirin Chewable 81 MG TAB PO SCH (08:48)
[2018-08-20] MEDS: Enoxaparin Sodium 40 MG/0.4 ML SYRINGE SC SCH (08:48)
[2018-08-20] MEDS: FLUoxetine HCl 20 MG CAP PO SCH (08:49)
[2018-08-20] MEDS: Lisinopril/Hydrochlorothiazide 20 mg/12.5 mg Tablet PO SCH (08:49)
[2018-08-20] MEDS: Famotidine/PF 20 mg/2ml Vial SLOW IVP SCH (08:49)
[2018-08-20] MEDS: buPROPion 75 MG TAB PO SCH ×2 (08:50→20:00)
[2018-08-20] MEDS: Metoprolol Tartrate 50 MG TAB PO SCH ×2 (08:50→20:00)
[2018-08-20] MEDS: Dextrose 5%-Lactated Ringers 1,000 ML IV SCH (09:58)
--- NOTE | 2018-08-20 12:23 | PRG ---
DATE OF SERVICE: 08/20/2018 SUBJECTIVE: Ms. Gallegos and her family have opted for hospice care. In fact, when we entered the room, the hospice nurse was visiting with Ms. Gallegos. After arrangements were made, she will be discharged to the care of hospice. Job ID: [id number]
[2018-08-20] MEDS: Atorvastatin Calcium 40 MG TAB PO SCH (20:01)
[2018-08-20] MEDS ORDERED: Furosemide 20 MG/2 ML VIAL SLOW IVP SCH (21:00)
--- NOTE | 2018-08-21 07:03 | PDOC.FM ---
- Subjective Subjective: pt feeling well this AM, no concerns or complaints. - Objective Vital Signs & Weight: Vital Signs (12 hours) Temp Pulse Resp BP Pulse Ox 08/21/18 03:19 97.7 F 67 19 146/89 H 93 L 08/20/18 20:20 98.2 F 67 20 142/69 H 94 L Weight Weight 53.206 kg I&O: 08/20/18 08/21/18 08/22/18 06:59 06:59 06:59 Intake Total 1540 1700 Output Total 3 Balance 1540 1697 Result Diagrams: 08/19/18 06:21 08/19/18 06:21 Phys Exam - Physical Examination Constitutional: NAD HEENT: moist MMs, sclera anicteric Neck: no JVD, supple Respiratory: no wheezing, clear to auscultation bilateral Cardiovascular: RRR, no significant murmur Gastrointestinal: soft, non-tender Musculoskeletal: no edema, pulses present Neurological: normal sensation, moves all 4 limbs Lymphatic: no nodes Psychiatric: normal affect Skin: no rash, normal turgor Dx/Plan (1) KARLI (acute kidney injury) Code(s): N17.9 - ACUTE KIDNEY FAILURE, UNSPECIFIED Status: Acute (2) GERD (gastroesophageal reflux disease) Code(s): K21.9 - GASTRO-ESOPHAGEAL REFLUX DISEASE WITHOUT ESOPHAGITIS Status: Acute (3) HTN (hypertension) Code(s): I10 - ESSENTIAL (PRIMARY) HYPERTENSION Status: Acute (4) Hypokalemia Code(s): E87.6 - HYPOKALEMIA Status: Acute (5) NSTEMI (non-ST elevated myocardial infarction) Code(s): I21.4 - NON-ST ELEVATION (NSTEMI) MYOCARDIAL INFARCTION Status: Acute (6) Sustained SVT Code(s): I47.1 - SUPRAVENTRICULAR TACHYCARDIA Status: Acute - Plan Plan: NSTEMI A- Resolved. Trops have now downtrended 1.252 -> 1.409 -> 1.331. Pt refused invasive interventions, continue with full conservative mgmt. th lovenox, statin , ASA. Cards rx 48 hours of this. Cards now signed off, recs appreciated P- resolved Sustained SVT A- Episode of nonsustained SVT on 08/16/18, s/p dilt IVP x1. Episode of sustained SVT on 08/17/18, s/p dilt IVP x1, then dilt gtt started then d/cd per cards P- continue metoprolol -Still refusing ablation/any invasive procedure -Amio if SVT returns New onset CHFrEF (30-35%) A- Pt had crackles last night and is s/p one dose lasix. CTAB now. BNP 2011, elevated from baseline, no hx of CHF. Echo showing grade 1/3 diastolic dysfx, mitral regurg, pericardial effusion w/o tamponade. P- Continue ASA, lisinopril, BB, statin Hypokalemia -replaced Dysphagia A-Patient with hx of esophageal stricture had plans for balloon dilation. Pt now going home on home hospice. p- comfort feeds per palliative comfort measures Pericardial effusion A- Found on TTE this admission, No tamponade, BPs maintaining P- No further intervention at this time Elevated D-dimer - Ddimer 1.19 - CTA neg for PE HTN - aware, home meds GERD - aware, continue home meds Depression - aware, continue home meds CODE: DNAR Dispo: pending placement at [facility], stable for discharge
[2018-08-21] MEDS: Aspirin Chewable 81 MG TAB PO SCH (09:06)
[2018-08-21] MEDS: FLUoxetine HCl 20 MG CAP PO SCH (09:06)
[2018-08-21] MEDS: Metoprolol Tartrate 50 MG TAB PO SCH ×2 (09:06→21:31)
[2018-08-21] MEDS: Lisinopril/Hydrochlorothiazide 20 mg/12.5 mg Tablet PO SCH (09:06)
[2018-08-21] MEDS: buPROPion 75 MG TAB PO SCH ×2 (09:06→21:31)
[2018-08-21] MEDS: Famotidine/PF 20 mg/2ml Vial SLOW IVP SCH (09:07)
[2018-08-21] MEDS: Enoxaparin Sodium 40 MG/0.4 ML SYRINGE SC SCH (09:07)
--- NOTE | 2018-08-21 11:52 | PRG ---
DATE OF SERVICE: 08/21/2018 Ms. Gallegos is having arrangements made for placement. She has chosen palliative hospice. Job ID: [id number]
[2018-08-21] MEDS: Atorvastatin Calcium 40 MG TAB PO SCH (21:31)
[2018-08-22] MEDS ORDERED: Furosemide 20 MG TAB PO SCH (09:00)
--- NOTE | 2018-08-22 09:11 | PDOC.FM ---
- Subjective Subjective: Pt resting comfortably, no new concerns or complaints, no SOB - Objective Vital Signs & Weight: Vital Signs (12 hours) Temp Pulse Resp BP Pulse Ox 08/22/18 03:23 97.9 F 56 L 19 125/67 97 Weight Weight 53.206 kg I&O: 08/21/18 08/22/18 08/23/18 06:59 06:59 06:59 Intake Total 1700 150 Output Total 3 Balance 1697 150 Result Diagrams: 08/19/18 06:21 08/19/18 06:21 Phys Exam - Physical Examination Constitutional: NAD HEENT: moist MMs, sclera anicteric Neck: no JVD, supple Respiratory: no wheezing, clear to auscultation bilateral Cardiovascular: RRR, no significant murmur Gastrointestinal: soft, non-tender Musculoskeletal: no edema Neurological: normal sensation, moves all 4 limbs Psychiatric: normal affect Skin: no rash, normal turgor Dx/Plan (1) KARLI (acute kidney injury) Code(s): N17.9 - ACUTE KIDNEY FAILURE, UNSPECIFIED Status: Acute (2) GERD (gastroesophageal reflux disease) Code(s): K21.9 - GASTRO-ESOPHAGEAL REFLUX DISEASE WITHOUT ESOPHAGITIS Status: Acute (3) HTN (hypertension) Code(s): I10 - ESSENTIAL (PRIMARY) HYPERTENSION Status: Acute (4) Hypokalemia Code(s): E87.6 - HYPOKALEMIA Status: Acute (5) NSTEMI (non-ST elevated myocardial infarction) Code(s): I21.4 - NON-ST ELEVATION (NSTEMI) MYOCARDIAL INFARCTION Status: Acute (6) Sustained SVT Code(s): I47.1 - SUPRAVENTRICULAR TACHYCARDIA Status: Acute - Plan Plan: NSTEMI A- Resolved. Trops have now downtrended 1.252 -> 1.409 -> 1.331. Pt refused invasive interventions, continue with full conservative mgmt. th lovenox, statin , ASA. Cards rx 48 hours of this. Cards now signed off, recs appreciated P- resolved Sustained SVT A- Episode of nonsustained SVT on 08/16/18, s/p dilt IVP x1. Episode of sustained SVT on 08/17/18, s/p dilt IVP x1, then dilt gtt started then d/cd per cards P- continue metoprolol -Still refusing ablation/any invasive procedure -Amio if SVT returns New onset CHFrEF (30-35%) A- Pt had crackles last night and is s/p one dose lasix. CTAB now. BNP 2011, elevated from baseline, no hx of CHF. Echo showing grade 1/3 diastolic dysfx, mitral regurg, pericardial effusion w/o tamponade. P- Continue ASA, lisinopril, BB, statin Hypokalemia -replaced Dysphagia A-Patient with hx of esophageal stricture had plans for balloon dilation. Pt now going home on home hospice. p- comfort feeds per palliative comfort measures Pericardial effusion A- Found on TTE this admission, No tamponade, BPs maintaining P- No further intervention at this time Elevated D-dimer - Ddimer 1.19 - CTA neg for PE HTN - aware, home meds GERD - aware, continue home meds Depression - aware, continue home meds CODE: DNAR Dispo: pending placement at [facility], stable for discharge
[2018-08-22] MEDS: Aspirin Chewable 81 MG TAB PO SCH (10:13)
[2018-08-22] MEDS: Enoxaparin Sodium 40 MG/0.4 ML SYRINGE SC SCH (10:13)
[2018-08-22] MEDS: buPROPion 75 MG TAB PO SCH (10:13)
[2018-08-22] MEDS: Famotidine/PF 20 mg/2ml Vial SLOW IVP SCH (10:13)
[2018-08-22] MEDS: FLUoxetine HCl 20 MG CAP PO SCH (10:14)
[2018-08-22] MEDS: Lisinopril/Hydrochlorothiazide 20 mg/12.5 mg Tablet PO SCH (10:14)
[2018-08-22] MEDS: Metoprolol Tartrate 50 MG TAB PO SCH (10:15)
[2018-08-22 10:56] VITALS: BP 132/59; TEMP 97.6
--- NOTE | 2018-08-22 12:33 | PRG ---
DATE OF SERVICE: 08/22/2018 Hospice placement has been made and the patient will be discharged. Job ID: [id number]
--- NOTE | 2018-08-23 11:32 | DIS ---
DATE OF ADMISSION: 08/15/2018 DATE OF DISCHARGE: 08/22/2018 RESIDENT: Benji Herring MD. DISCHARGE ATTENDING: Destin Chavarria MD. CONSULTATIONS: 1. Cardiology, Dr. Nilo Hernandez. 2. Palliative Care. 3. PT. 4. Speech Evaluation. PROCEDURES: 1. On 08/16/2018, chest and thorax CTA. Impression, no CT evidence of pulmonary embolism. 2. On 08/16/2018, echocardiogram, ejection fraction is visually estimated at 30% to 35%, inferior hypokinesis, grade 1/3 diastolic dysfunction, mild annular calcification is present, mild mitral regurgitation, heavily calcified valve, reduced cusp opening. Hemodynamic measurements suggest moderate aortic valve stenosis, [id number] tricuspid regurgitation. Right ventricular systolic pressure estimated at 46 mmHg, moderate pulmonic regurgitation, moderate-sized pericardial effusion without tamponade, large pleural effusion. PRIMARY DIAGNOSIS: Non ST-elevation myocardial infarction. SECONDARY DIAGNOSES: 1. Sustained supraventricular tachycardia. 2. New onset heart failure with reduced ejection fraction. 3. Hypokalemia. 4. Dysphagia. 5. Pericardial effusion. 6. Elevated D-dimer. 7. Hypertension. 8. Gastroesophageal reflux disease. 9. Depression. DISCHARGE MEDICATIONS: 1. Acetaminophen 650 mg p.o. q.4 hours p.r.n. 2. Aspirin 81 mg p.o. daily. 3. Atorvastatin 40 mg p.o. at bedtime. 4. Dulcolax 10 mg p.o. daily p.r.n. 5. Wellbutrin 150 mg p.o. b.i.d. 6. Ferrous sulfate mg p.o. daily. 7. Prozac 20 mg p.o. daily. 8. Furosemide 20 mg p.o. daily. 9. Lisinopril-hydrochlorothiazide 20-12.5 one tablet p.o. daily. 10. Metoprolol tartrate 50 mg p.o. b.i.d. 11. Senokot 2 tablets p.o. b.i.d. p.r.n. DISCONTINUED MEDICATIONS: None. HISTORY OF PRESENT ILLNESS/HOSPITAL COURSE: This is an 88-year-old female who came in to hospital for chest pain. The patient was found to have elevated troponins and it was deemed the patient was having NSTEMI with normal EKG. Cardiology was consulted and the patient received 48 hours of therapeutic Lovenox, statin, and aspirin. Statin and aspirin continued after 48 hours. The patient refused any invasive intervention including stress or catheterization, and palliative care team was consulted as family and patient expressed desire for hospice. The patient was eventually deemed stable and discharged to [facility] with hospice after completing in-hospital and [id number] DNAR. Of note, the patient's hospital stay was also significant for an episode of sustained SVT which was corrected with diltiazem. The patient was also found to have new onset heart failure with reduced ejection fraction, ejection fraction being 30% to 35%. The patient was on aspirin, lisinopril, beta brook, and statin, and discharged with these medications. The patient also had hypokalemia which was replaced. Dysphagia, on further evaluation which was revealed from history that the patient had esophageal stricture with plans for balloon dilation. After Speech Therapy was consulted and Palliative team consulted, the patient opted for comfort feeds with soft diet, and significant for pericardial effusion with no tamponade. The patient is not being symptomatic, this was overall unconcerning. The patient also had elevated D-dimer, but CTA was negative for pulmonary embolism. All other medical problems were treated with home medications. DISPOSITION: Stable. DISCHARGE INSTRUCTIONS: 1. Location: [facility]. 2. Activity: As tolerated, fall risk and bedrest. 3. Diet: Fluid restriction. 4. Followup: Followup with [facility], Azeem Duff, Dr. Hernandez in [address] to [address] Anguiano in 7 days. Job ID: [id number]
== END 2018-08-22 11:22 | disposition hospice, inpatient (51) | DRG 280 ==
LOC: ERS 18:35 → 2NO 21:27
PROVIDERS: ADMIT Emergency Medicine; ATTEND Emergency Medicine
DX: I21.A1 Myocardial infarction type 2 (principal); I50.21 Acute systolic (congestive) heart failure; I47.1 Supraventricular tachycardia; N17.9 Acute kidney failure, unspecified; I31.3 Pericardial effusion (noninflammatory); Z66 Do not resuscitate; I11.0 Hypertensive heart disease with heart failure; F32.9 Major depressive disorder, single episode, unspecified; M19.91 Primary osteoarthritis, unspecified site; K21.9 Gastro-esophageal reflux disease without esophagitis; D64.9 Anemia, unspecified; E87.6 Hypokalemia; Z88.0 Allergy status to penicillin; Z88.2 Allergy status to sulfonamides; Z90.49 Acquired absence of other specified parts of digestive tract
CPT/HCPCS: 36415; 71275; 80048; 83036; 83540; 83550; 83735; 84145; 84443; 84484; 85025; 87324; 87449; 93005; 93010; 93306; 93798; 94760; 96374; J1650; J1940; J3480; J3490; J7050; J7121; Q9966; S0028